=== PATIENT | female | born 1970 | race Caucasian/White ===

== ENCOUNTER 2022-12-29 11:00 | Emergency (ER) | payer BC ==
[2022-12-29 11:13] VITALS: BP 137/75; PULSE 65; RESP 18; TEMP 98.9; BMI 31.1
[2022-12-29] MEDS ORDERED: IBUPROFEN 400 MG TABLET (FP) PO ONE ×2 (12:04→12:11)
== END 2022-12-29 15:45 | disposition home or self-care (01) ==
LOC: JERFT 11:00
DX: S93.501A Unspecified sprain of right great toe, initial encounter (principal); M25.571 Pain in right ankle and joints of right foot; W01.0XXA Fall on same level from slipping, tripping and stumbling without subsequent striking against object, initial encounter
CPT/HCPCS: 73110-TC-RT-FY; 73130-TC-RT-FY; 73610-TC-RT-FY; 73630-TC-RT-FY; 99283-25